=== PATIENT | male | born 1965 | race Two or more races ===

== ENCOUNTER 2023-01-07 15:11 | Emergency (ER) | payer SELFPAY ==
[~2023-01-07] VITALS: Ht 175.3 cm; Wt 88.5 kg
--- NOTE | 2023-01-07 15:11 | NUR ---
RECEIVED PT 57 YRS MALE CAME by lesia c/o chest pain 02/21 strted this after noon awake and alert DINESES SOB or distress skin warm and dry too touch
--- NOTE | 2023-01-07 15:17 | NUR ---
EKG DONE AT ED SIDE DR. CHAU NOTEFED AND SEEN
--- NOTE | 2023-01-07 15:40 | NUR ---
BLOOD DROW BY LAB TACH AT BED SIDE
--- NOTE | 2023-01-07 15:47 | NUR ---
REAPEAT 2 ND ED AT BED SIDE
--- NOTE | 2023-01-07 15:50 | NUR ---
CALLED [facility] [phone] DR. KEATON PUGH SPEAKING WITH DR. CHAU.
[2023-01-07] MEDS ORDERED: ASPIRIN 325 MG TABLET ONE (15:52)
[2023-01-07] MEDS ORDERED: MORPHINE SULFATE INJ 4 MG/ML DISP.SYRIN ONE (15:52)
[2023-01-07] MEDS ORDERED: NITROGLYCERIN 0.4 MG/TAB BOTTLE ONE (15:52)
--- NOTE | 2023-01-07 15:53 | NUR ---
CALLED [phone] RA [phone] RESPONDING. INCIDENT [id number]
--- NOTE | 2023-01-07 15:56 | NUR ---
DR. MIXON SPEAKING WITH DR. CHAU.
--- NOTE | 2023-01-07 15:59 | NUR ---
MORPHIN 4MG SLOW IVP GIVEN AND ASA 325 MG AND NIG 0.4 MG SL GIVEN
[2023-01-07] MEDS ORDERED: ASPIRIN 325 MG TABLET PO ONE (16:00)
[2023-01-07] MEDS ORDERED: MORPHINE SULFATE INJ 2 MG/ML DISP.SYRIN IV ONE (16:00)
[2023-01-07] MEDS ORDERED: NITROGLYCERIN 0.4 MG/TAB BOTTLE SL ONE (16:00)
[2023-01-07 16:01] VITALS: BP 131/88
[2023-01-07 16:04] LABS: BASOPHILS # (AUTO) 0.1 K/uL (0.0-0.2); BASOPHILS % (AUTO) 0.5 % (0.0-2.0); EOSINOPHILS % (AUTO) 0.7 % (0.0-6.0); HEMATOCRIT 53 % (39-51); LYMPHOCYTES # (AUTO) 1.7 K/uL (0.8-4.8); LYMPHOCYTES % (AUTO) 8.2 % (20.0-44.0); MEAN CORPUSCULAR HGB CONC 32 g/dl (31.0-36.0); MEAN CORPUSCULAR VOLUME 91 fL (80-96); MONOCYTES # (AUTO) 0.8 K/uL (0.1-1.30); MONOCYTES % (AUTO) 4.1 % (2.0-12.0); NEUTROPHILS # (AUTO) 17.7 K/uL (1.8-8.9); NEUTROPHILS % (AUTO) 86.5 % (43.0-81.0); PLATELET COUNT (AUTO) 469 K/uL (150-450); WHITE BLOOD COUNT (AUTO) 20.4 K/uL (4.3-11.0)
--- NOTE | 2023-01-07 16:04 | NUR ---
TRANSFER PT BY RODDY KENDRICK BY 911 THE SAME STAION CHEST PAIN 0/10
[2023-01-07 16:27] LABS: CALCIUM, SERUM 9.5 mg/dL (8.5-10.1); CARBON DIOXIDE 27 mmol/L (21-32); CHLORIDE 104 mmol/L (98-107); CREATININE 1.3 mg/dL (0.6-1.3); GLUCOSE 238 mg/dL (74-106); POTASSIUM 5.1 mmol/L (3.5-5.1); SODIUM SERUM 140 mmol/L (136-145); UREA NITROGEN, BLOOD 19 mg/dL (7-18)
== END 2023-01-07 17:00 | disposition short-term general hospital (02) ==
LOC: ER 15:17
DX: I21.3 ST elevation (STEMI) myocardial infarction of unspecified site (principal); R07.9 Chest pain, unspecified; I10 Essential (primary) hypertension; E11.9 Type 2 diabetes mellitus without complications; E78.5 Hyperlipidemia, unspecified; F17.200 Nicotine dependence, unspecified, uncomplicated
CPT/HCPCS: 99285; 96374; 71045; 93005 ×3; 85025; 80048; 36415; 84484; 83880; J2270